=== PATIENT | male | born 1955 | race Caucasian/White ===

== ENCOUNTER 2016-11-16 20:35 | Emergency (ER) | payer MEDICARE ==
[~2016-11-16] VITALS: Ht 160 cm; Wt 95.5 kg
[2016-11-16 20:58] VITALS: Ht 160 cm; Wt 95.5 kg
[2016-11-16] MEDS ORDERED: HYDROmorphONE 1 MG/ML SYG IV STA (21:11)
[2016-11-16] MEDS ORDERED: PROPOFOL 200 MG INJ IV STA (21:11)
[2016-11-16] MEDS ORDERED: ONDANSETRON 4 MG INJ IV STA (21:11)
[2016-11-16] MEDS ORDERED: LISI40TA9 PO (21:50)
[2016-11-16] MEDS ORDERED: LIRA0.6P SQ (21:51)
[2016-11-16] MEDS ORDERED: SIMV20TA PO (21:51)
[2016-11-16] MEDS ORDERED: METF1000 PO (21:51)
[2016-11-16] MEDS ORDERED: LANT3I SC (21:52)
--- NOTE | 2016-11-16 22:19 | RADRPT ---
PROCEDURE: XR Shoulder. CLINICAL INDICATION: 61-year-old male. Right shoulder pain. Fall. TECHNIQUE: 2 views of the right shoulder. COMPARISON: None available FINDINGS: There is anterior inferior dislocation of the humeral head relative to the glenoid. Well corticated ossicle overlying the greater tuberosity may be due to remote trauma. No acute fractures are ident ified on these limited views. IMPRESSION: Anterior inferior dislocation of the right shoulder. RPTAT: HCTS Physician Brad Date Time Electronically viewed and signed by Physician Brad on 11/16/2016 22:19 CS/
[2016-11-16] MEDS ORDERED: HYDR-902 PO (22:32)
--- NOTE | 2016-11-16 23:07 | ERA ---
ER Documentation Chief Complaint Date/Time DATE: 11/16/16 TIME: 23:03 Chief Complaint Ground level fall. Shoulder pain and look deformed HPI Patient is a 61-year-old male with diabetes and hypertension who presents with a fall. He has right-sided shoulder pain. The fall happened 1 hour ago. He has not had any treatment as of yet. The pain is sharp in nature and constant. ROS All systems reviewed and are negative except as per history of present illness. Medications Home Meds Active Scripts Hydrocodone/Acetaminophen (Vanlue 10-325 Tablet) 1 Each Tablet, 1 TAB PO Q6H Y for PAIN, #7 TAB Prov:GUCCI ESTRADA MD 11/16/16 Reported Medications Insulin Glargine* (Lantus*) 100 Unit/Ml Soln, 30 UNIT SC QHS, #1 VIAL 11/16/16 Liraglutide (Victoza 2-Quinton) 0.6 Mg/0.1 Ml Pen.injctr, 1.2 MG SQ QAM, SYR 11/16/16 Simvastatin* (Zocor*) 20 Mg Tablet, 20 MG PO QHS, #30 TAB 11/16/16 Metformin Hcl* (Metformin Hcl*) 1,000 Mg Tablet, 1000 MG PO WITH BREAKFAST DINNE , #60 TAB 11/16/16 Lisinopril* (Lisinopril*) 40 Mg Tablet, 40 MG PO DAILY, #30 TAB 11/16/16 Allergies Allergies: Coded Allergies: No Known Allergy (Unverified , 11/16/16) PMhx/Soc Medical and Surgical Hx: pt denies Surgical Hx History of Surgery: No Anesthesia Reaction: No Hx Neurological Disorder: No Hx Respiratory Disorders: No Hx Cardiac Disorders: No Hx Psychiatric Problems: No Hx Miscellaneous Medical Probl: Yes (DM) Hx Alcohol Use: No Hx Substance Use: No Hx Tobacco Use: No Smoking Status: Never smoker FmHx Family History: No diabetes Physical Exam Vitals Vital Signs Date Time Temp Pulse Resp B/P Pulse Ox O2 Delivery O2 Flow Rate FiO2 11/16/16 20:58 96.6 64 20 135/75 98 Physical Exam Const: Moderate distress secondary to pain Head: Atraumatic Eyes: Normal Conjunctiva ENT: Normal External Ears, Nose and Mouth. Neck: Full range of motion..~ No meningismus. Resp: Clear to auscultation bilaterally Cardio: Regular rate and rhythm, no murmurs Abd: Soft, non tender, non distended. Normal bowel sounds Skin: No petechiae or rashes Back: No midline or flank tenderness Ext: Squared off right shoulder consistent with a right shoulder dislocation , pulses intact to the right upper extremity Neur: Awake and alert, able to give a thumbs up, okay sign, touch all fingers to thumb, and spread fingers on the right upper extremity Psych: Normal Mood and Affect Results 24 hrs Current Medications Medications (Trade) Dose Ordered Sig/Joe Route PRN Reason Start Time Stop Time Status Last Admin Dose Admin Propofol (Diprivan) 200 mg ONCE STAT IV 11/16/16 21:11 11/16/16 21:13 DC Hydromorphone HCl (Dilaudid) 1 mg ONCE STAT IV 11/16/16 21:11 11/16/16 21:13 DC 11/16/16 21:35 Ondansetron HCl (Zofran Inj) 4 mg ONCE STAT IV 11/16/16 21:11 11/16/16 21:13 DC 11/16/16 21:35 Procedures/MDM X-ray Shoulder #1 3V Interpreted by me: Bones: [No fracture] Joints: Right shoulder dislocation Foreign body: [None] X-ray Shoulder #2 3V Interpreted by me: Bones: [No fracture] Joints: Successful reduction Foreign body: [None] Procedural Sedation: Pre-assessment performed. See preceding complete history and physical for details. Time out performed. See sedation documentation for details. Medication(s): Propofol 80 mg IV Complications: No hypoxic or apneic events Recovered without incident. Greater than 15 minutes of face to face time included in sedation and recovery. Shoulder Reduction by me: Anesthesia: Propofol Location: Right shoulder Technique: External rotation Results: Christianity of normal anatomic positioning Compl: Neurovascularly intact post procedure. Splint Note Type: Shoulder immobilizer Location: Right shoulder Indication: Dislocation Splint Assessment: Neurovascularly intact post splint placement with good fit. Patient can follow-up with Dr. Pardo from orthopedic surgery. He will be given Vanlue for pain. He can return for any worsening symptoms. There is no other sign of traumatic injury. The patient feels better and had no palpitations with sedation. Departure Diagnosis: Primary Impression: Shoulder dislocation Qualified Code: S43.004A - Shoulder dislocation, right, initial encounter Condition: Fair Patient Instructions: Dislocation, Other Joint Referrals: DEVIN PARDO MD Additional Instructions: Specialist:Usted tiene milli condicin mdica que requiere que clarisse a un especialista dentro de los prximos 1-2 chavez.POR FAVOR,CON PATEL SEGUIMIENTO DE PRIMARIA PHSICIAN refferal. SI USTED NO TIENE UN MDICO GENERAL Y / O USTED NO PUEDE PAGAR lashaun a un mdico,los siguientes hill RECURSOS sido suministrado a usted. ES PATEL RESPONSABILIDAD PARA SER VISTOS POR EL ESPECIALISTA: GUCCI ESTRADA MD Nov 16, 2016 23:07
--- NOTE | 2016-11-16 23:20 | RADRPT ---
PROCEDURE: XR Shoulder. CLINICAL INDICATION: 61 old male. Status post reduction right shoulder dislocation.. TECHNIQUE: Two views of the right shoulder. COMPARISON: X-rays earlier the same day FINDINGS: Previously identified anterior inferior shoulder dislocation has been reduced and the humeral head n ow articulates with the glenoid. There is superior translation of the humeral head relative to the glenoid and it articulates with the undersurface of the acromion with bony remodelling from a comple te rotator cuff tear. Moderate acromioclavicular osteoarthritis. No acute fractures are identified . IMPRESSION: Anatomic reduction of anterior shoulder dislocation. Negative for evidence of acute fracture althou gh evaluation is limited on these 2 views. Rotator cuff tear and acromioclavicular osteoarthritis.. RPTAT: HCTS Physician Brad Date Time Electronically viewed and signed by Physician Brad on 11/16/2016 23:19 /
[2016-11-16 23:49] VITALS: BP 145/82; PULSE 145; RESP 17; TEMP 98.6
== END 2016-11-16 23:59 | disposition home or self-care (01) ==
LOC: E/R 20:35
DX: S43.004A Unspecified dislocation of right shoulder joint, initial encounter (principal); E11.9 Type 2 diabetes mellitus without complications; I10 Essential (primary) hypertension; W18.39XA Other fall on same level, initial encounter; Y92.9 Unspecified place or not applicable; Z79.4 Long term (current) use of insulin; Z79.84 Long term (current) use of oral hypoglycemic drugs
CPT/HCPCS: 23650; 73030; 93005; 94770; 96374; 96375; 99285; J1170; J2405

== ENCOUNTER 2016-11-23 16:39 | Emergency (ER) | END 2016-11-23 21:22 | disposition home or self-care (01) | DX: G51.0 Bell's palsy (principal); I10 Essential (primary) hypertension; E11.9 Type 2 diabetes mellitus without complications; Z79.4 Long term (current) use of insulin; Z79.84 Long term (current) use of oral hypoglycemic drugs; Z96.653 Presence of artificial knee joint, bilateral | CPT/HCPCS: 99284; J7512 ==

== ENCOUNTER 2018-01-03 06:12 | Day surgery (SDC) | END 2018-01-03 14:38 | disposition home or self-care (01) ==

== ENCOUNTER 2018-12-13 06:08 | Day surgery (SDC) | payer OTHER ==
[2018-05-09 12:00] VITALS: BMI 32.7
[2018-12-13] VITALS (11 sets, daily range): BP systolic 108–134; BP diastolic 51–74; PULSE 85–92; RESP 13–18; Ht 165.1 cm; Wt 89.8 kg
[~2018-12-13] VITALS: Ht 165.1 cm; Wt 89.8 kg
[~2018-12-13 06:08] MED LIST: BROMFENAC SODIUM 1.7 ML OPH DROP OPER SCH; CARBACHOL 0.01% 1.5 ML OPH INJ ONE; CYCLOPENTOLATE 2% 2 ML OPH OPER SCH; HYDROXYZINE PO; LACTATED RINGER'S 1,000 ML IV SCH; LANT3I SC; LIDOCAINE 3.5% GEL TUBE OPER ONE; LIRA0.6P SQ; LISI40TA3 PO; METF100010 PO; MOXIFLOXACIN 0.5% 3 ML OPH OPER SCH; NA HYALURONATE/CHONDROITIN 0.5 ML SYG ONE; PHENYLephrine 10% 5 ML OPH OPER SCH; SIMV20TA PO; TETRACAINE 0.5% 4 ML OPH ONE; TETRACAINE 0.5% 4 ML OPH OPER SCH; TOBRAMYCIN/DEXAMETH 3.5 GM OPH OINT ONE; TROPICAMIDE 1% 15 ML OPH OPER SCH; TRYPAN BLUE 0.5 ML SYG IO ONE
[2018-12-13] MEDS ORDERED: BROMFENAC SODIUM 1.7 ML OPH DROP OPER SCH (07:00)
[2018-12-13] MEDS ORDERED: TROPICAMIDE 1% 15 ML OPH OPER SCH (07:00)
[2018-12-13] MEDS ORDERED: CYCLOPENTOLATE 2% 2 ML OPH OPER SCH (07:00)
[2018-12-13] MEDS ORDERED: PHENYLephrine 10% 5 ML OPH OPER SCH (07:00)
[2018-12-13] MEDS ORDERED: LACTATED RINGER'S 1,000 ML IV SCH ×2 (07:00)
[2018-12-13] MEDS ORDERED: LIDOCAINE 3.5% GEL TUBE OPER ONE (07:00)
[2018-12-13] MEDS ORDERED: MOXIFLOXACIN 0.5% 3 ML OPH OPER SCH (07:00)
[2018-12-13] MEDS ORDERED: CARBACHOL 0.01% 1.5 ML OPH INJ ONE (07:31)
[2018-12-13] MEDS ORDERED: EPINEPHrine 1 MG INJ ONE (07:31)
[2018-12-13] MEDS ORDERED: TOBRAMYCIN/DEXAMETH 3.5 GM OPH OINT ONE (07:32)
[2018-12-13] MEDS ORDERED: LIDOCAINE 1% (MPF) 5 ML VIAL INJ ONE (07:45)
[2018-12-13] MEDS ORDERED: TETRACAINE 0.5% 4 ML OPH RIGHT EYE ONE (07:45)
[2018-12-13] MEDS ORDERED: MIDAZOLAM 1 MG/ML 2 ML INJ ONE (08:07)
[2018-12-13] MEDS ORDERED: FENTAnyl 50 MCG/ML VIAL ONE (08:07)
[2018-12-13] MEDS ORDERED: ACETAMINOPHEN 500 MG TAB PO STA (08:31)
[2018-12-13] MEDS ORDERED: TOBRAMYCIN/DEXAMETH 3.5 GM OPH OINT RIGHT EYE ONE (08:46)
[2018-12-13] MEDS ORDERED: CARBACHOL 0.01% 1.5 ML OPH INJ IO ONE (08:46)
[2018-12-13] MEDS ORDERED: hydrALAzine 20 MG INJ IV PRN (09:00)
[2018-12-13] MEDS ORDERED: OXYCODONE/ACETAMINOPHEN (5/325) TAB PO PRN ×2 (09:00)
[2018-12-13] MEDS ORDERED: ONDANSETRON 4 MG INJ IV PRN (09:00)
[2018-12-13] MEDS ORDERED: FENTAnyl 50 MCG/ML VIAL IV PRN ×3 (09:00)
[2018-12-13] MEDS ORDERED: LABETALOL HCL 20MG INJ IV PRN (09:00)
== END 2018-12-13 10:30 | disposition home or self-care (01) ==
LOC: SDS 06:08
PROVIDERS: ATTEND Ophthalmology
DX: H25.89 Other age-related cataract (principal); E11.9 Type 2 diabetes mellitus without complications; I10 Essential (primary) hypertension; G47.30 Sleep apnea, unspecified
CPT/HCPCS: 66984; 71045; 82962; J0171; J2250; J3010; J7120; V2630